=== PATIENT | male | born 2000 | race Caucasian/White ===

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

== ENCOUNTER 2021-11-02 02:16 | Emergency (ER) | payer SELFPAY ==
[2021-11-02] MEDS ORDERED: Lidocaine 1% 10 ML MDV INJECT ONE (02:58)
[2021-11-02] MEDS ORDERED: Diphtheria,Pertussis(Acell),Tetanus Vaccine 0.5 ML Syringe IM ONE (02:58)
[2021-11-02] MEDS ORDERED: Bupivacaine 0.5% 10 ML SDV INJECT ONE (02:58)
== END 2021-11-02 04:03 | disposition home or self-care (01) ==
LOC: JD.ED 02:16
DX: S61.212A Laceration without foreign body of right middle finger without damage to nail, initial encounter (principal); S61.214A Laceration without foreign body of right ring finger without damage to nail, initial encounter; Z23 Encounter for immunization; W26.8XXA Contact with other sharp object(s), not elsewhere classified, initial encounter
CPT/HCPCS: 12002; 90471; 90715; 99282; J3490; 99283